=== PATIENT | male | born 1950 | race Caucasian/White ===

== ENCOUNTER → 2016-06-27 | Outpatient (CLI) | payer BC ==
[~2016-06-27] MED LIST: ACP20 PO; CEPH500C2 PO; FENO67CA2 PO; LISI-461 PO; TAMS0.4C59 PO
== END | disposition home or self-care (01) ==
LOC: C.LABMFLN 07:30
PROVIDERS: ATTEND Urology
DX: C61 Malignant neoplasm of prostate (principal)

== ENCOUNTER → 2017-02-06 | Outpatient (CLI) | payer BC | END | disposition home or self-care (01) | LOC: C.LABMFLN 08:14 | PROVIDERS: ATTEND Urology | DX: C61 Malignant neoplasm of prostate (principal) ==

== ENCOUNTER → 2017-04-15 | Outpatient (CLI) | payer BC ==
[2015-04-13 14:07] VITALS: BP 128/80; PULSE 76
[2017-04-15 13:18] VITALS: BP 135/88; PULSE 75; TEMP 36.3; O2SAT 96
--- NOTE | 2017-04-15 14:40 | Radiation Oncology Follow-Up ---
Radiation Oncology Follow-Up Date of Visit Apr 15, 2017. Reason For Visit Annual follow-up Radiation Completion Date Seed Implant - Monotherapy 07/08/11 Diagnosis (1) Prostate Cancer Status: Resolved Onset Date: 06/27/2012 Location: left lobe of the prostate Histology Subtype: adenocarcinoma Stage: ll Permanent Comment: Rising PSA, pretreatment PSA 4.56 Status post biopsy revealing adenocarcinoma 3+3 Biopsy stage TIIb status post seed implant with cesium 131 as monotherapy 2011 Last Edited By: Linda Reyes on Apr 13, 2015 15:08 Interim History He's been doing well over this past year from urinary standpoint. His AUA was 2. He does continue to need to take the tamsulosin daily. He had been hospitalized for olecranon bursitis. This was a staph infection. He had to have surgery. While in the hospital he was not given the tamsulosin. He had frequency and recurrent nocturia. He did restart medicine and had no difficulty then with urination. He has no problems with dysuria. He completed and expanded prostate cancer index composite for clinical practice and gave a score of one of 12 and urinary incontinence symptoms. He gave a score of 0 of 12 and urinary irritation symptoms. He gave a score of 0 of 12 bowel symptoms. He had a PSA 02/06/2017 and that was 0.141. Allergies Coded Allergies: Vancomycin (Verified Allergy, Severe, Red Man Syndrome , 04/15/17) Home Medications Scheduled Fenofibrate (Tricor), 67 MG PO DAILY Lisinopril (Zestril), 10 MG PO QAM Rabeprazole Sodium (Aciphex *), 20 MG PO QAM Tamsulosin Hcl (Flomax), 0.4 MG PO QAM Review of Systems Gastrointestinal: Symptoms: WNL Oral: Symptoms: No Problems Respiratory: Symptoms: WNL Urinary: Symptoms: WNL Comments: See AUA & EPIC Skin: Symptoms: No Problems Other Skin Symptoms: Dressing remains dry and intact to left elbow; Physical Exam Vital Signs Date Time Temp Pulse Resp B/P (MAP) Pulse Ox O2 Delivery O2 Flow Rate FiO2 04/15/17 13:18 36.3 75 16 135/88 96 Pain: Pain Location: None Patient Pain Scale: 0 - 10 Initial Pain Intensity: 0.0 General Appearance: no apparent distress Eyes: normal inspection, EOMI ENT: normal ENT inspection, hearing grossly normal Neck: no adenopathy, thyroid normal Respiratory/Chest: lungs clear, no respiratory distress, no accessory muscle use Cardiovascular: regular rate, rhythm, no gallop, no murmur Abdomen: normal bowel sounds, non tender, soft Anal / Rectum: Normal sphincter tone. External/internal hemorrhoids. No rectal masses no rectal bleeding. Prostate consistent with seed implant. Extremities: no pedal edema Neurologic/Psychiatric: no motor/sensory deficits, alert, normal mood/affect Skin: warm/dry Laboratory Studies Test 02/06/17 08:28 Prostate Specific Antigen 0.141 ng/ml (0.000-4.000) Assessment & Plan Plan: Continue regular follow-up with his primary care physician and Dr. Angelo. He continues on the tamsulosin. Continue PSAs every 6 months. We asked him to return to our office in 1 year. He may call if she has any questions or concerns in the interim. Total Time In Follow-Up I spent 20 minutes speaking to the patient and performing examination. I spent 15 minutes reviewing information and completing this note. Copy To Daphne Kate; Bhaskar Angelo MD
== END | disposition home or self-care (01) ==
LOC: C.ONC 13:09
PROVIDERS: ATTEND Physician Assistant Medical
DX: Z09 Encounter for follow-up examination after completed treatment for conditions other than malignant neoplasm (principal); Z92.3 Personal history of irradiation; Z85.46 Personal history of malignant neoplasm of prostate